=== PATIENT | female | born 1960 | race Caucasian/White ===

== ENCOUNTER → 2024-10-22 | Outpatient (CLI) | payer MEDICARE, SELFPAY ==
[2024-10-22 12:33] LABS: Erythrocyte Sedimentation Rate 22 mm/hr (0-30)
[2024-10-22 13:21] LABS: CPK Total, Creatine Kinase 33 U/L (24-195); Vitamin B12 309 pg/mL (180-914)
[2024-10-22 13:26] LABS: CRP < 3.00 mg/L (0.0-3.0)
== END | disposition home or self-care (01) ==
LOC: LAB 11:38
PROVIDERS: PCP Family Medicine; Referring Provider Internal Medicine Gastroenterology; Visit Provider Internal Medicine Gastroenterology
DX: R19.7 Diarrhea, unspecified (principal)
CPT/HCPCS: 36415; 82085; 82550; 82607; 82784; 82785; 82787; 82941; 83516; 84165; 85652; 86003; 86005; 86036; 86037; 86140; 86255; 86334; 86340; 86671

== ENCOUNTER → 2024-10-24 | Outpatient (CLI) | payer MEDICARE, SELFPAY ==
[2024-10-28 16:08] LABS: Calprotectin, Stool 72 ug/g (0-120); Fats, Neutral Normal (.); Fats, Total Normal (.)
== END | disposition home or self-care (01) ==
LOC: LABSPEC 17:19
PROVIDERS: PCP Family Medicine; Referring Provider Internal Medicine Gastroenterology; Visit Provider Internal Medicine Gastroenterology
DX: R19.7 Diarrhea, unspecified (principal); K58.9 Irritable bowel syndrome, unspecified
CPT/HCPCS: 82274; 82384; 82653; 82705; 83497; 83630; 83993; 84585; 87177; 87209; 87329; 87493

== ENCOUNTER → 2024-11-28 | Outpatient (CLI) | payer MEDICARE, SELFPAY ==
--- NOTE | 2024-11-28 11:44 | MRI_ITS ---
PROCEDURE: ENTEROGRAPHY ABD/PEL, 11/28/2024 REASON FOR EXAM: R19.7 - DIARRHEA, UNSPECIFIED TECHNIQUE: Multisequence multiplanar MRI of the abdomen and pelvis was performed with and without IV contrast. Glucagon also administered. IV contrast: 17 mL Clariscan PO contrast: Administered, however type and dose information was not provided. COMPARISON: None FINDINGS: Variable overall mild motion limitation. Note that the exam was optimized for evaluation of the bowel rather than the remaining abdominopelvic viscera. Accordingly, some abdominal viscera are excluded from the [id number]. Additionally, anal canal and perianal region are not included in the field of view. Note also that dynamic T2 and diffusion sequences were note that not performed. Liver: Grossly unremarkable. Spleen: Unremarkable. Gallbladder: Presumed cholecystectomy. Pancreas: Unremarkable. Adrenals: Unremarkable. Kidneys: Bilateral cysts slight relative atrophy on the LEFT with slightly asymmetric mild cortical thinning. Bowel: Tiny hiatal hernia. No convincing areas of abnormal bowel wall thickening, mural stratification, hyperemia, or dilatation. No findings to suggest fistulization or abscess. Diminutive and otherwise unremarkable appendix. Lymph nodes: Unremarkable. Vasculature: Unremarkable. Peritoneum: Unremarkable. Bladder: Underdistended and suboptimally evaluated, grossly unremarkable. Reproductive Organs: Unremarkable. Body Wall: Suspect operative changes along the LEFT hip and near the pubic symphysis. Bones: Unremarkable. MRI/Enterography Abd/Pel IMPRESSION: 1. No convincing MRI evidence of inflammatory bowel disease. 2. Additional description as above. Reading Location: [id number]
[2024-11-28 12:10] VITALS: BP 110/81; PULSE 75; RESP 18; O2SAT 97; BMI 34.0
[2024-11-28] MEDS: 0.9% Saline Lock 10 ML Syringe IV (12:28)
[2024-11-28] MEDS: Glucagon 1 MG/ML Syringe IV (13:22)
[2024-11-28 13:37] VITALS: BP 134/59; PULSE 87; RESP 18; O2SAT 96
== END | disposition home or self-care (01) ==
LOC: MRI 11:38
PROVIDERS: PCP Family Medicine; Referring Provider Internal Medicine Gastroenterology; Visit Provider Internal Medicine Gastroenterology
DX: R19.7 Diarrhea, unspecified (principal)
CPT/HCPCS: 74183; 96374; A9575; J1610